=== PATIENT | female | born 1990 | race Caucasian/White ===

== ENCOUNTER 2017-03-15 20:57 | Emergency (ER) | payer BC ==
[~2017-03-15] VITALS: Ht 167.6 cm; Wt 80.9 kg
[2017-03-15 21:08] VITALS: BP 112/63; PULSE 80; RESP 20; TEMP 98.2; O2SAT 98
[2017-03-15 21:47] LABS: BLOOD, URINE TRACE (NEG); GLUCOSE,URINE NEG (NEG); KETONE, URINE NEG (NEG); NITRITE,URINE NEG (NEG)
[2017-03-15 22:01] LABS: URINE COLOR YELLOW (YELLW/STRAW)
[2017-03-15 22:02] LABS: BACTERIA, URINE FEW /hpf; COMMENT (UR) CULT NOT INDICATED; CULTURE IF INDICATED CULT NOT INDICATED; RBC, URINE 0-3 /hpf (0-3); SQUAMOUS EPITHELIAL CELL URINE > 8 /hpf (0-5); WBC, URINE 0-2 /hpf (0-5)
--- NOTE | 2017-03-15 22:56 | PD ---
HPI Chief Complaint: Abdominal Pain Time Seen by Provider: 22:48 Travel History International Travel<30 days: No Contact w/Intl Traveler<30days: No Traveled to known affect area: No History of Present Illness HPI The patient is a 26-year-old female that complains of bilateral lower abdominal pain radiating to her back for one week. She does have frequency and urgency but no dysuria. She denies any fever or vomiting but does have nausea. She has not had any abdominal surgeries and still has her uterus, appendix and gallbladder. Her only medical history is that of anxiety and she has had a tubal ligation as well as a tonsillectomy. PFSH Past Medical History Anxiety: Yes Diminished Hearing: No Integumentary: Yes (eczema) Tetanus Vaccination: < 5 Years Influenza Vaccination: No ?: Not LMP: 03/03/17 : 5 Para: 3 Miscarriage: 2 Dilation and Curettage (D&C): Yes Tubal Ligation: Yes Past Surgical History Tonsillectomy: Yes Social History Alcohol Use: No Tobacco Use: No Substance Use: No Allergies-Medications (Allergen,Severity, Reaction): Coded Allergies: Penicillins (Verified Allergy, Severe, 03/15/17) shellfish derived (Verified Allergy, Severe, 03/15/17) Reported Meds & Prescriptions Reported Meds & Active Scripts Active Prochlorperazine Maleate 10 Mg Tab 10 Mg PO Q6H PRN Review of Systems Except as stated in HPI: all other systems reviewed are Neg Physical Exam Narrative GENERAL: The patient is alert, oriented 3 and slight apparent distress with her bilateral lower abdominal pain. Her vital signs are normal. SKIN: Focused skin assessment warm/dry. HEAD: Atraumatic. Normocephalic. EYES: Pupils equal and round. No scleral icterus. No injection or drainage. ENT: No nasal bleeding or discharge. Mucous membranes pink and moist. NECK: Trachea midline. No JVD. CARDIOVASCULAR: Regular rate and rhythm. No murmur appreciated. RESPIRATORY: No accessory muscle use. Clear to auscultation. Breath sounds equal bilaterally. GASTROINTESTINAL: Abdomen soft, with tenderness to direct palpation in the bilateral lower quadrants, nondistended. Hepatic and splenic margins not palpable. No guarding or rebound is present. MUSCULOSKELETAL: No obvious deformities. No clubbing. No cyanosis. No edema. NEUROLOGICAL: Awake and alert. No obvious cranial nerve deficits. Motor grossly within normal limits. Normal speech. PSYCHIATRIC: Appropriate mood and affect; insight and judgment normal. Data Data Last Documented VS Vital Signs Date Time Temp Pulse Resp B/P (MAP) Pulse Ox O2 Delivery O2 Flow Rate FiO2 03/16/17 00:07 69 16 113/61 (78) 97 Room Air 03/15/17 21:08 98.2 Orders Orders Urinalysis - C+S If Indicated (03/15/17 21:04) Ed Urine Pregnancytest Poc (03/15/17 21:04) Complete Blood Count With Diff (03/15/17 23:36) Basic Metabolic Panel (Bmp) (03/15/17 23:36) Gc And Chlamydia Pcr (03/15/17 23:36) Wet Prep Profile (03/15/17 23:36) Ct Abd/Pel W Iv Contrast(Rout) (03/16/17 00:14) Iohexol 350 Inj (Omnipaque 350 Inj) (03/16/17 00:56) Ceftriaxone Inj (Rocephin Inj) (03/16/17 01:30) Azithromycin Powd Pack (Zithromax Powd P (03/16/17 01:30) Ondansetron Inj (Zofran Inj) (03/16/17 02:00) Ed Discharge Order (03/16/17 01:58) Labs Laboratory Tests Test 03/15/17 21:30 03/15/17 23:43 03/16/17 00:02 Urine Color YELLOW Urine Turbidity CLEAR Urine pH 6.0 Urine Specific [place] 1.035 Urine Protein NEG mg/dL Urine Glucose (UA) NEG mg/dL Urine Ketones NEG mg/dL Urine Occult Blood TRACE Urine Nitrite NEG Urine Bilirubin NEG Urine Leukocyte Esterase NEG Urine RBC 0-3 /hpf Urine WBC 0-2 /hpf Urine Squamous Epithelial Cells > 8 /hpf Urine Bacteria FEW /hpf Microscopic Urinalysis Comment CULT NOT INDICATED Clue Cells (Wet Prep) NONE SEEN Vaginal Trichomonas (Wet Prep) NONE SEEN Vaginal Yeast (Wet Prep) NONE SEEN White Blood Count 10.3 TH/MM3 Red Blood Count 4.59 MIL/MM3 Hemoglobin 12.6 GM/DL Hematocrit 40.5 % Mean Corpuscular Volume 88.3 FL Mean Corpuscular Hemoglobin 27.4 PG Mean Corpuscular Hemoglobin Concent 31.1 % Red Cell Distribution Width 13.6 % Platelet Count 340 TH/MM3 Mean Platelet Volume 8.3 FL Neutrophils (%) (Auto) 67.3 % Lymphocytes (%) (Auto) 21.0 % Monocytes (%) (Auto) 9.7 % Eosinophils (%) (Auto) 1.7 % Basophils (%) (Auto) 0.3 % Neutrophils # (Auto) 6.9 TH/MM3 Lymphocytes # (Auto) 2.2 TH/MM3 Monocytes # (Auto) 1.0 TH/MM3 Eosinophils # (Auto) 0.2 TH/MM3 Basophils # (Auto) 0.0 TH/MM3 CBC Comment DIFF FINAL Differential Comment Blood Urea Nitrogen 15 MG/DL Creatinine 0.69 MG/DL Random Glucose 97 MG/DL Calcium Level 8.5 MG/DL Sodium Level 139 MEQ/L Potassium Level 3.7 MEQ/L Chloride Level 104 MEQ/L Carbon Dioxide Level 29.8 MEQ/L Anion Gap 5 MEQ/L Estimat Glomerular Filtration Rate 102 ML/MIN MDM Medical Decision Making Medical Screen Exam Complete: Yes Emergency Medical Condition: Yes Medical Record Reviewed: Yes Interpretation(s) A [id number] urine test is negative. The CBC is normal. The basic metabolic profile is normal. The urinalysis shows trace occult blood with few bacteria and culture is not indicated. The wet prep shows negative for clue cells, negative for Trichomonas and negative for vaginal yeast. Differential Diagnosis Cystitis, colitis, PID, torsion ovary-unlikely, appendicitis, Narrative Course The patient appears to have PID. She does have exquisite cervical tenderness on examination. The CT scan does not show any acute findings and, specifically does not show appendicitis. Diagnosis Primary Impression: PID (acute pelvic inflammatory disease) Additional Instructions: As we discussed, the Compazine is for nausea. The antibiotics were given on the possibility of an infection. This was because your tenderness on pelvic exam. Follow-up with your manager skilled next week. Med/Other Pt SpecificInfo: Prescription(s) given Scripts Prochlorperazine Maleate (Prochlorperazine Maleate) 10 Mg Tab 10 MG PO Q6H Y for NAUSEA OR VOMITING, #28 TAB 0 Refills Prov: Marquez Bates MD 03/16/17 Disposition: 01 DISCHARGE HOME Condition: Stable Marquez Bates MD Mar 15, 2017 22:56
[2017-03-16 00:07] VITALS: BP 113/61; PULSE 69; RESP 16; O2SAT 97
[2017-03-16 00:37] LABS: POTASSIUM 3.7 MEQ/L (3.5-5.1)
[2017-03-16 00:38] LABS: AUTOMATED NEUTROPHIL # 6.9 TH/MM3 (1.8-7.7); BASOPHIL % 0.3 % (0.0-2.0); EOSINOPHIL # 0.2 TH/MM3 (0-0.4); EOSINOPHIL % 1.7 % (0.0-4.0); HEMATOCRIT 40.5 % (35.0-46.0); HEMO FLAGS DIFF FINAL; LYMPHOCYTE # 2.2 TH/MM3 (1.0-4.8); MEAN CELL VOLUME 88.3 FL (80.0-100.0); MEAN CORPUSCULAR HEMOGLOBIN 27.4 PG (27.0-34.0); MEAN CORPUSCULAR HGB CONC 31.1 % (32.0-36.0); MONO % 9.7 % (0.0-8.0); NEUT % 67.3 % (16.0-70.0); PLATELET COUNT 340 TH/MM3 (150-450); RED BLOOD COUNT 4.59 MIL/MM3 (4.00-5.30); RED CELL DISTRIBUTION WIDTH 13.6 % (11.6-17.2); WHITE BLOOD COUNT 10.3 TH/MM3 (4.0-11.0)
[2017-03-16 00:40] LABS: BICARBONATE 29.8 MEQ/L (21.0-32.0)
[2017-03-16] MEDS ORDERED: IOHEXOL 350 MG/ML 10 ML VIAL (for RAD DIAG) IVCONTRAST ONE (00:56)
[2017-03-16] MEDS ORDERED: AZITHROMYCIN PWD FOR SUSP 1 GM PACKET PO ONE (01:30)
[2017-03-16] MEDS ORDERED: cefTRIAXone INJ 1,000 MG in SODIUM CHLORIDE 0.9% INJ 100 ML IV ONE (01:30)
--- NOTE | 2017-03-16 01:40 | RADRPT ---
EXAM DATE/TIME: 03/16/2017 00:50 [facility] COMPARISON: No previous studies available for comparison. INDICATIONS : Bilateral lower quadrant pain for one week. IV CONTRAST: 100 cc Omnipaque 350 (iohexol) IV ORAL CONTRAST: No oral contrast ingested. RADIATION DOSE: 11.76 CTDIvol (mGy) MEDICAL HISTORY : None SURGICAL HISTORY : Tubal ligation. ENCOUNTER: Initial ACUITY: 1 week PAIN SCALE: 7/10 LOCATION: Bilateral lower quadrant TECHNIQUE: Volumetric scanning of the abdomen and pelvis was performed. Using automated exposure control and ad justment of the mA and/or kV according to patient size, radiation dose was kept as low as reasonably achievable to obtain optimal diagnostic quality images. DICOM format image data is available electro nically for review and comparison. FINDINGS: LOWER LUNGS: The visualized lower lungs are clear. LIVER: Homogeneous density with a small low-attenuation lesion noted in the inferior right lobe. This measur es approximate 7-8 mm in size. There is no dilation of the biliary tree. No calcified gallstones. Th e gallbladder is contracted. There is mild hepatic steatosis. SPLEEN: Normal size without lesion. PANCREAS: Within normal limits. KIDNEYS: Normal in size and shape. There is no mass, stone or hydronephrosis. ADRENAL GLANDS: Within normal limits. VASCULAR: There is no aortic aneurysm. BOWEL/MESENTERY: No oral contrast was given limiting sensitivity. The stomach, small bowel, and colon demonstrate no a cute abnormality. There is no free intraperitoneal air or fluid. ABDOMINAL WALL: Within normal limits. RETROPERITONEUM: There is no lymphadenopathy. BLADDER: No wall thickening or mass. REPRODUCTIVE: The uterus is at the upper limits of normal in size. INGUINAL: There is no lymphadenopathy or hernia. MUSCULOSKELETAL: Within normal limits for patient age. CONCLUSION: 1. Unremarkable bowel gas pattern 2. The uterus is at the upper limits of normal in size. 3. Mild hepatic steatosis. The gallbladder is contracted. 4. Small low-attenuation lesion in the liver which may represent a small cyst or cavernous hemangioma . Eliceo Mcbride MD on March 16, 2017 at 1:35 Board Certified Radiologist. This report was verified electronically.
[2017-03-16] MEDS ORDERED: PROC10TA PO (01:54)
[2017-03-16] MEDS ORDERED: ONDANSETRON HCL 4 MG/2 ML VIAL IV ONE (02:00)
[2017-03-16 03:04] VITALS: BP 118/68; TEMP 98.7
[2017-03-16 08:55] LABS: CHLAMYDIA PCR NOT DETECTED (NOT DETECT); NEISSERIA PCR NOT DETECTED (NOT DETECT)
== END 2017-03-16 03:06 | disposition home or self-care (01) ==
LOC: PHED 20:57
DX: N73.0 Acute parametritis and pelvic cellulitis (principal)
CPT/HCPCS: 74177; 80048; 81001; 84703; 85025; 87210; 87491; 87591; 96365; 96375; 99285; J0696; J2405; Q9967